=== PATIENT | female | born 1975 | race Caucasian/White ===

== ENCOUNTER 2018-01-20 12:48 | Emergency (ER) | payer MEDICAID ==
[~2018-01-20] VITALS: Ht 172.7 cm; Wt 81.6 kg
[2018-01-20 12:48] VITALS: BP 131/85
[2018-01-20] MEDS ORDERED: ALBUTEROL FS 2.5 MG/0.5 ML VIAL.NEB ONE (13:13)
[2018-01-20] MEDS ORDERED: ALBUTEROL FS 2.5 MG/0.5 ML VIAL.NEB NEB ONE (13:30)
--- NOTE | 2018-01-20 14:18 | NUR ---
Patient discharged to home in stable condition. Written and verbal after care instructions given. Patient verbalizes understanding of instruction.
[2018-01-20] MEDS ORDERED: predniSONE 20 MG TABLET PO ONE (14:30)
== END 2018-01-20 14:37 | disposition home or self-care (01) ==
LOC: ER 12:49
DX: J40 Bronchitis, not specified as acute or chronic (principal); F41.9 Anxiety disorder, unspecified; F31.9 Bipolar disorder, unspecified; F10.10 Alcohol abuse, uncomplicated; Z88.2 Allergy status to sulfonamides; Z88.1 Allergy status to other antibiotic agents
CPT/HCPCS: 71045-TC; A4606; Z7610